=== PATIENT | female | born 1995 | race African-American/Black ===

== ENCOUNTER 2018-04-30 09:50 | Emergency (ER) | payer SELFPAY ==
[2018-04-30] MEDS ORDERED: Ibuprofen 800 MG TAB ONE (09:58)
[2018-04-30] MEDS ORDERED: Dexamethasone 4 mg/ml Vial ONE (10:31)
[2018-04-30 10:54] LABS: Pregnancy Test - Urine (BHCG) Negative (Negative); Pregu Control Background? CLEAR/WHITE (CLR/WHITE); Pregu Control Bar Appear? YES (CONTROL BAR); Specific Gravity 1.019 (1.002-1.036)
[2018-04-30] MEDS ORDERED: Mag-Al 1200 mg/1200 mg/30 ML UDCUP ONE (11:04)
[2018-04-30] MEDS ORDERED: Lidocaine Viscous Sol 2% 15 ml UD Cup ONE (11:04)
[2018-04-30 11:09] LABS: MONO NEGATIVE CONTROL ZONE White (Negative) (White); MONO POSITIVE CONTROL Pink Line (Positive) (PINK/RED); Mononucleosis NEGATIVE (NEGATIVE)
== END 2018-04-30 12:47 | disposition home or self-care (01) ==
LOC: ERS 09:50
DX: J02.9 Acute pharyngitis, unspecified (principal)
CPT/HCPCS: 36415; 81025; 86308; 87081; 87430; 99283; J1100

== ENCOUNTER 2018-12-23 23:34 | Emergency (ER) | payer MEDICAID, SELFPAY | END 2018-12-24 01:03 | disposition home or self-care (01) | LOC: ERS 23:34 | DX: L08.9 Local infection of the skin and subcutaneous tissue, unspecified (principal) | CPT/HCPCS: 99282 ==

== ENCOUNTER 2022-03-28 16:18 | Emergency (ER) | payer OTHER, BC ==
[2022-03-28] MEDS ORDERED: Ketorolac Tromethamine 30 MG/ML VIAL ONE (18:04)
== END 2022-03-28 19:19 | disposition home or self-care (01) ==
LOC: ERS 16:18
DX: S01.511A Laceration without foreign body of lip, initial encounter (principal); S80.212A Abrasion, left knee, initial encounter; M25.561 Pain in right knee; M25.572 Pain in left ankle and joints of left foot; V89.2XXA Person injured in unspecified motor-vehicle accident, traffic, initial encounter
CPT/HCPCS: 96372; J1885

== ENCOUNTER 2025-05-11 18:30 | Emergency (ER) | payer MEDICAID, OTHER, SELFPAY | END 2025-05-11 22:10 | disposition home or self-care (01) | LOC: ERS 18:30 | DX: S82.832A Other fracture of upper and lower end of left fibula, initial encounter for closed fracture (principal); W18.43XA Slipping, tripping and stumbling without falling due to stepping from one level to another, initial encounter | CPT/HCPCS: 96372; 99283; J2270 ==